=== PATIENT | male | born 2000 | race Caucasian/White ===

== ENCOUNTER 2021-11-15 20:55 | Emergency (ER) | payer BC ==
[~2021-11-15] VITALS: Ht 190.5 cm; Wt 65.8 kg
[2021-11-15 21:55] VITALS: BP 131/74
== END 2021-11-15 21:56 | disposition home or self-care (01) ==
LOC: M.ERS 20:55
DX: S61.210A Laceration without foreign body of right index finger without damage to nail, initial encounter (principal); R11.10 Vomiting, unspecified; W26.0XXA Contact with knife, initial encounter; Y93.89 Activity, other specified; Y92.89 Other specified places as the place of occurrence of the external cause; Y99.8 Other external cause status